=== PATIENT | male | born 1995 | race African-American/Black ===

== ENCOUNTER 2022-05-13 12:22 | Emergency (ER) | payer MEDICAID ==
[~2022-05-13] VITALS: Ht 177.8 cm; Wt 100.0 kg
[2022-05-13] MEDS ORDERED: ACETAMINOPHEN 325MG TABLET PO ONE (14:45)
[2022-05-13 16:00] VITALS: BP 109/65
== END 2022-05-13 18:28 | disposition home or self-care (01) ==
LOC: ER 12:52
DX: R56.9 Unspecified convulsions (principal)
CPT/HCPCS: 36415; 80185; 99284